=== PATIENT | female | born 1950 | race Caucasian/White ===

== ENCOUNTER 2018-02-20 12:07 | Emergency (ER) | payer MEDICARE, OTHER ==
[~2018-02-20] VITALS: Ht 162.6 cm; Wt 83.9 kg
--- OUTSIDE RECORDS SUMMARY | 2018-02-20 12:08 | XMS REPORT | Clinical Summary ---
Author Author [facility] Organization [facility] Address Unknown Phone Unavailable Care Team Providers Care Msw Name Role Phone Rocky Christianson MD PCP Allergies Comments Active Allergy Reactions Severity Noted Date Adhesive Rash Low 04/15/2015 Levofloxacin Diarrhea, 07/17/2015 Nausea And Vomiting Methylprednisolone Diarrhea, 07/17/2015 Nausea And Vomiting Methylprednisolone Sodium 01/20/2016 Succinate Penicillin G Rash Low 06/04/2015 Penicillins Rash Low 07/17/2015 Medications End Date Status Medication Sig Dispensed Refills Start Date Active cetirizine (ZyrTEC) 10 MG Take 10 mg by 0 tablet mouth. Active aspirin (ECOTRIN) 81 MG Take 81 mg by 0 enteric coated tablet mouth. Active cholecalciferol, vitamin Take 1,000 0 D3, (VITAMIN D3) 1,000 Units by unit capsule mouth. Active omega-3 fatty Take 1 0 acids-vitamin E 1,000 mg capsule by capsule mouth. Active calcium carbonate Take 1 tablet 0 (CALCIUM 600) 600 mg (600 mg 6 (1,500 mg) tablet total) by mouth 2 (two) times a day with meals. Active ranitidine (ZANTAC) 150 TAKE 1 TABLET 60 tablet 8 MG tablet (150 MG 7 TOTAL) BY MOUTH 2 (TWO) TIMES A DAY. Active escitalopram (LEXAPRO) 20 TAKE ONE (1) 30 tablet 10 MG tablet TABLET(S) BY 7 MOUTH ONCE A DAY. Active atorvastatin (LIPITOR) 40 TAKE ONE (1) 90 tablet 1 MG tablet TABLET(S) BY 7 MOUTH DAILY. Active FLUCELVAX QUAD , IMMUNIZATION 0 PF, 60 mcg (15 mcg x GIVEN 7 4)/0.5 mL syringe IM Injection Active estradiol (ESTRACE) 0.01 Insert 0.5 g 42.5 g 2 % (0.1 mg/gram) vaginal into the 7 creamIndications: Vaginal vagina 3 atrophy (three) times a week. Active levothyroxine (SYNTHROID, Take 1 tablet 90 tablet 1 LEVOXYL) 112 mcg tablet (112 mcg 8 total) by mouth every morning. 03/10/2017 Discontinued montelukast (SINGULAIR) Take 10 mg by 0 10 mg tablet mouth nightly. 03/17/2017 Discontinued levothyroxine (SYNTHROID, Take 112 mcg 0 LEVOTHROID) 112 MCG by mouth tablet every morning. 03/10/2017 Discontinued estradiol (ESTRACE) 0.01 Insert 1 g 42.5 g 0 % (0.1 mg/gram) vaginal into the 7 cream vagina 3 (three) times a week. 03/10/2017 Discontinued albuterol (PROAIR Inhale 2 18 g 0 HFA,PROVENTIL puffs every 6 7 HFA,VENTOLIN HFA) 90 (six) hours mcg/actuation inhaler as needed for wheezing or shortness of breath. 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 07/27/2016 Osteoarthritis of spine with radiculopathy, lumbar region 07/27/2016 Spinal stenosis at L4-L5 level 07/27/2016 Postmenopausal HRT (hormone replacement therapy) 07/27/2016 Generalized anxiety disorder 01/20/2016 Psychophysiological insomnia 01/20/2016 BMI 33.0-33.9,adult 01/20/2016 IGT (impaired glucose tolerance) 01/20/2016 Colon polyp 06/17/2015 Low back pain 06/04/2015 Depression 06/04/2015 Hypothyroidism 06/04/2015 Mixed hyperlipidemia 06/04/2015 GERD (gastroesophageal reflux disease) 06/04/2015 Thyroid nodule 06/04/2015 Encounters Care Team Description Date Type Specialty Mario Cooper MD Complete tear of right rotator cuff (Primary Dx) 01/25/2018 Transcribe Physical Therapy Orders Rocky Christianson MD 09/04/2017 Refill Family Medicine Rocky Christianson MD 08/01/2017 Refill Family Medicine Rocky Christianson MD 03/17/2017 Telephone Family Medicine Shirin Mcnair MD Breast lump in female (Primary Dx); Well woman exam; Vaginal atrophy 03/10/2017 Office Visit Obstetrics and Gynecology Rocky Christianson MD 03/01/2017 Telephone Family Medicine after 02/19/2017 Immunizations Name Dates Previously Given Next Due Influenza Trivalent 01/07/2015 Family History Medical History Relation Name Comments Cancer Maternal Aunt Em Lung Cancer Maternal Aunt Dianna Lung Cancer Maternal Aunt Alexa Lymph Nodes Cancer Maternal Leta Breast Grandmother Cancer Mother Delilah Glioblastoma Relation Name Status Comments Maternal Aunt Em Maternal Aunt Dianna Maternal Aunt Alexa Maternal Grandmother Leta Mother Delilah Social History Date Tobacco Use Types Packs/Day Years Used Never Smoker Smokeless Tobacco: Never Used Alcohol Use Drinks/Week oz/Week Comments No Sex Assigned at Date Recorded Not on file Industry Job Start Date Occupation Not on file Not on file Not on file Travel End Travel History Travel Start No recent travel history available. Last Filed Vital Signs Time Taken Vital Sign Reading 03/10/2017 3:11 PM [employer] Blood Pressure 139/61 03/10/2017 3:11 PM [employer] Pulse 83 - Temperature - - Respiratory Rate - - Oxygen Saturation - - Inhaled Oxygen - Concentration 03/10/2017 3:11 PM [employer] Weight 86.2 kg (190 lb) 03/10/2017 3:11 PM [employer]IE[employer] Height 162.6 cm (5' 4") 03/10/2017 3:11 PM [employer]KERCHIE[employer] Body Mass Index 32.61 Plan of Treatment Care Team Description Date Type Specialty Mario Cooper MD [address] [place] [address] [phone] Cordell Aquino, PT 02/21/2018 Office Visit Physical Therapy Mario Cooper MD [address] [place] [address] [phone] Cordell Aquino, PT 02/28/2018 Office Visit Physical Therapy Health Maintenance Due Date Last Done Comments SHINGRIX VACCINE (1 of 2) 2002 ZOSTER VACCINE 2012 BREAST CANCER SCREENING 06/30/2013 07/01/2011 INFLUENZA VACCINE 10/13/2017 03/01/2017, 01/07/2015, 12/13/2014, Additional history exists PNEUMOCOCCAL 2017 POLYSACCHARIDE VACCINE AGE 65 AND OVER PNEUMOCOCCAL-13 2017 CERVICAL CANCER SCREENING 03/10/2020 03/10/2017 COLON CANCER SCREENING 09/02/2022 09/02/2012 Procedures Comments Procedure Name Priority Date/Time Associated Diagnosis GYNECOLOGIC PAP TEST Routine 03/10/2017 Well woman exam (IMAGE-GUIDED), 3:59 PM HANDKERCHIEF CUTTER LIQUID-BASED PREPARATION AND HUMAN PAPILLOMAVIRUS (HPV) HIGH-RISK DNA DETECTION WITH REFLEX TO HPV GENOTYPES 16 AND 18 after 02/19/2017 Results * Gynecologic Pap Test (Image-guided), Liquid-based Preparation and Human Papillomavirus (HPV) High-risk DNA Detection With Reflex to HPV Genotypes 16 and 18 (03/10/2017 3:59 PM HANDKERCHIEF CUTTER) Diagnosis Comment [facility] Comment: NEGATIVE FOR INTRAEPITHELIAL LESION AND MALIGNANCY. THIS SPECIMEN WAS RESCREENED PART OF OUR COMPUTER HARDWARE ENGINEER PROGRAM. Specimen adequacy Comment [facility] Comment: Satisfactory for evaluation.Endocervical and/or squamous metaplastic cells (endocervical component) are present. Clinician provided ICD10 CommentComment: Z01.419 [facility] Performed by: Comment [facility] Comment: Lei Gomez, Tow Motor Driver (ASC) Reviewed at: [facility] [address] [facility] [id number] reviewed by: CommentComment: Akila Muñoz [facility] Moran, Supervisory Tow Motor Driver (ASCP) Comment . [facility] Note: Comment [facility] Comment: The Pap smear is a screening test designed to aid in the detection of premalignant and malignant conditions of the uterine cervix.It is not a diagnostic procedure and should not be used as the sole means of detecting cervical cancer.Both false-positive and false-negative reports do occur. Test methodology Comment [facility] Comment: This liquid based ThinPrep(R) pap test was screened with the use of an image guided system. HPV, high-risk Negative Negative [facility] 02 Comment: This high-risk HPV test detects thirteen high-risk types (16/18/31/33/35/39/45/51/52/56 /58/59/68) without differentiation. Specimen Swab Narrative Performed At Performed at: - [facility] [address] [facility] [address] [place], [id number] Application Development Specialist: Lorrie Fernandez MD, Phone:[phone] Performed at:02 - [facility] [address] [place], [id number] Application Development Specialist: Lorrie Fernandez MD, Phone:[phone] Specimen Comment: Source.............Vagina Specimen Comment: No. of containers..01 ThinPrep Vial Performing Organization Address City/State/Zipcode Phone Number [facility] 02 after 02/19/2017 Insurance Payer Benefit Subscriber ID Type Phone Address Plan / Group [employer] [place] [employer] Commercial [place] MED[place] MEDICARE xxxxxxxxxxx Medicare [place], [place] PART A AND B Advance Directives Patient has advance care planning documents on file. For more information, varinder zarco contact: Acosta Rincon [address] [place] [address]
--- OUTSIDE RECORDS SUMMARY | 2018-02-20 12:09 | XMS REPORT | Encounter Summary ---
Author Organization Unknown Address [address] [place] [address] Phone [phone] Reason for Visit Medical Complaint Instructions 1. Acute cystitis urinalysis, dipstick Bactrim DS 800 mg-160 mg tablet culture, urine 2. Dysuria painful urination (dysuria): care instructions 3. Cough Tessalon Perles 100 mg capsule 4. Posterior rhinorrhea fluticasone 50 mcg/actuation nasal spray,suspension 5. Body mass index 30+ - obesity Discussion Note Take your antibiotics as directed. Do not stop taking them just because you feel better. You need to take the full course of antibiotics. Drink extra water and other fluids for the next day or two. This may help wash out the bacteria that are causing the infection. (If you have kidney, heart, or liver disease and have to limit fluids, talk with your doctor before you increase your fluid intake.) Avoid drinks that are carbonated or have caffeine. They can irritate the bladder. Urinate often. Try to empty your bladder each time. To relieve pain, take a hot bath or lay a heating pad set on low over your lower belly or genital area. Never go to sleep with a heating pad in place. Plan of Care Reminders Provider Appointments None recorded. Lab Urinalysis, Dipstick 01/18/2018 [facility] Culture, Urine 01/18/2018 [facility] Referral None recorded. Procedures None recorded. Surgeries None recorded. Imaging None recorded. Medications Name Start Date atorvastatin 40 mg tablet TAKE ONE (1) TABLET(S) BY MOUTH ONCE A DAY. Bactrim DS 800 mg-160 mg tablet Take 1 tablet every 12 hours by oral route with meals for 5 days. calcium carbonate 600 mg calcium (1,500 mg) tablet Take by oral route. cetirizine 10 mg capsule Take by oral route. cholecalciferol (vit D3) 1,000 unit-vitamin K2 (MK4) 100 mcg tablet Take by oral route. escitalopram 20 mg tablet TAKE ONE (1) TABLET(S) BY MOUTH ONCE A DAY. Estrace 0.01% (0.1 mg/gram) vaginal cream INSERT 0.5 GRAMS INTO THE VAGINA 3 (THREE) TIMES A WEEK. fluticasone 50 mcg/actuation nasal spray,suspension [place] 2 sprays twice a day by intranasal route as needed for 10 days. levothyroxine 112 mcg tablet TAKE ONE (1) TABLET(S) BY MOUTH ONCE A DAY. [place] 3 Tessalon Perles 100 mg capsule Take 2 capsules 3 times a day by oral route as needed for 10 days. Medications Administered None recorded. Vitals Height Weight BMI Blood Pressure 5 ft 4 in 185 lbs 31.8 kg/m2 118/78 mm[Hg] Lab Results None recorded. Allergies Code Code System Name Reaction Severity Status Onset Penicillins Rash Active Problems Name Status Onset Date Source Hypothyroidism Active 10/14/2017 Hyperlipidemia Active 10/14/2017 Body Mass Index 30+ - Obesity Active 10/14/2017 Seasonal Allergy Active 10/14/2017 Procedures Date Name Performed by Arthroscopic Repair of Rotator Cuff Information not available Cholecystectomy Information not available Hysterectomy Information not available Vaccine List Vaccine Type influenza, injectable, quadrivalent 12/13/2016 11/24/2017 influenza, seasonal, injectable 11/13/2013 12/13/2014 Social History Smoking Status Never Smoker Past Encounters 01/18/2018 Acute Cystitis; Dysuria; Cough; Posterior Rhinorrhea; Body Mass Index 30+ - Obesity Akhil Guerrero PA-C: [address] [place] [address], Ph. History of Present Illness [id number]-Kjuhlek Reported By: Patient HPI: Quality: pain, burning. Severity: same. Duration: constant. Onset/Timing: sudden. Context: not sexually active, no known exposure to STD, no prior history of STDs, history of urine cultures/antibiotic treatment, wipes anterior to posterior. Modifying factors OTC medication. Associated Symptoms: no fever/chills, no flank pain, no jaundice, no blood in the urine, no pain during urination, no vaginal discharge, no blisters on genitals, no rash on genitals, no muscle aches, no headache, burning sensation during urination, urgency, urinary frequency Cough Reported By: Patient HPI: Location: chest. Quality: productive cough, congested, hacking cough. Duration: 1 days. Severity: mild. Onset/Timing: sudden. Context: no sick contacts, no foreign travel, non-smoker, allergies. Modifying factors: OTC medication. Associated Symptoms: no sputum production, no shortness of breath, no wheezing, no sweats, no significant weight gain, no significant weight loss, no morning cough, no sore throat, no vomiting, no diarrhea, no rash, no nausea, no fever/chills, no muscle aches, no headache Review of Systems Basic Reported By: Patient Constitutional: Constitutional: no fever Eyes: Eyes: no eye complaints Xrvk-Ulnh-Rkmek-Throat: Ears: no ear complaints. Nose: nose/sinus problems. Mouth/Throat: no sore throat, no bleeding gums, no mouth complaints, no teeth problems Cardiovascular: Cardiovascular: no chest pain, no shortness of breath, no known heart murmur Respiratory: Respiratory: no wheezing, no shortness of breath, cough Gastrointestinal: Gastrointestinal: no abdominal pain, no vomiting / diarrhea Genitourinary: Genitourinary: no discharge, dysuria, urinary urgency Musculoskeletal: Musculoskeletal: no muscle aches, no muscle weakness, no arthralgias/joint pain, no back pain Skin: Skin: no abnormal / changing mole, no jaundice, no rashes Neurologic: Neurologic: no loss of consciousness, no weakness, no numbness, no seizures, no dizziness, no headaches Physical Exam Adult Female Complete Reported By: Patient Constitutional: General Appearance: healthy-appearing, well-nourished, well-developed, overweight. Level of Distress: NAD. Ambulation: ambulating normally Psychiatric: Mental Status: active and alert. Orientation: to time, to place, to person Eyes: Lids and Conjunctivae: non-injected, no discharge, no pallor. Pupils: PERRLA. EOM: EOMI. Sclerae: non-icteric. Vision: acuity grossly intact Lyq-Tghp-Drhlq-Throat: Ears: no lesions on external ear, no outer ear tenderness, EACs clear, TM erythematous, TM perforated. Hearing: no hearing loss. Nose: no lesions on external nose, nares patent, no septal deviation, nasal passages clear, no sinus tenderness, nasal discharge, nasal discharge--purulent, nasal discharge--rhinorrhea, post nasal drip; clear but boggy and swollen turbinates. Lips, Teeth, and Gums: no mouth or lip ulcers, no bleeding gums, normal dentition. Oropharynx: moist mucous membranes, no erythema, no exudates, tonsils not enlarged; cobblestoning Neck: Neck: supple, trachea midline, no masses, FROM. Lymph Nodes: no cervical LAD, no supraclavicular LAD Lungs: Respiratory effort: no dyspnea. Auscultation: breath sounds normal Cardiovascular: Heart Auscultation: RRR, no murmurs Abdomen: Bowel Sounds: normal. Inspection and Palpation: soft, non-distended, no tenderness, no guarding, no rebound tenderness, no masses, no CVA tenderness. Liver: non-tender, no hepatomegaly. Spleen: non-tender, no splenomegaly. Hernia: none palpable
--- OUTSIDE RECORDS SUMMARY | 2018-02-20 12:09 | XMS REPORT | Encounter Summary ---
Author Organization Unknown Address [address] [place] [address] Phone [phone] Reason for Visit Medical Complaint Instructions 1. [...] Appointments None recorded. Lab Urinalysis, Dipstick 01/18/2018 [facility] Culture, Urine 01/18/2018 [facility] Referral None [...] A WEEK. fluticasone 50 mcg/actuation nasal spray,suspension [place] 2 sprays twice a day by intranasal route as needed for 10 days. levothyroxine 112 mcg tablet TAKE ONE (1) TABLET(S) BY MOUTH ONCE A DAY. [place] 3 Tessalon Perles 100 mg capsule Take [...] 30+ - Obesity Akhil Guerrero PA-C: [address] [place] [address], Ph. History of Present Illness [id number] Reported By: Patient HPI: Quality: pain, burning. [...] no fever Eyes: Eyes: no eye complaints Anug-Fybq-Fldpp-Throat: Ears: no ear complaints. Nose: nose/sinus problems. [...] EOMI. Sclerae: non-icteric. Vision: acuity grossly intact Yiy-Yjao-Nzyqn-Throat: Ears: no lesions on external ear, no [...]
--- OUTSIDE RECORDS SUMMARY | 2018-02-20 12:09 | XMS REPORT | Encounter Summary ---
Author Organization Unknown Address [address] [place] [address] Phone [phone] Reason for Visit Medical Complaint Instructions 1. Seasonal allergy seasonal allergies: care instructions prednisone 20 mg tablet 2. Pain in throat sore throat: care instructions Lidocaine Viscous 2 % mucosal solution rapid strep group A, throat 3. Body mass index 30+ - obesity body mass index: care instructions Discussion Note Pt is in NAD; Verbalizes understanding of all instructions with no questions at this time. Plan of Care Patient Instructions Gargle and spit viscous lidocaine as needed for sore throat as directed. Take fluticasone over the counter as needed for congestion. [place] one spray in each nostril twice a day. Take a warm, steamy shower, blow your nose thereafter, and spray in each nostril. Tilt your head up for about 10 seconds and breath through your mouth. Do not sniff or snort the medication in or else the medication will go to your throat and not be absorbed appropriately. Take over the counter Xyzal or continue with cetirzine as directed for allergy like symptoms like runny nose, sneezing and watery eyes. Take steroid as directed and with food to avoid heartburn. Take medications as prescribed and follow up with a PCP within 2-3 if symptoms worsen as discussed. Recommend follow a low sodium/fat/carb diet and exercise 30-45 mins/d 3-4 days a week once symptoms resolve. Reminders Provider Appointments None recorded. Lab Rapid Strep Group a, Throat 10/14/2017 [facility] Referral None recorded. Procedures None recorded. Surgeries None recorded. Imaging None recorded. Medications Name Start Date aspirin 81 mg chewable tablet Chew 1 tablet every day by oral route. atorvastatin 40 mg tablet TAKE ONE (1) TABLET(S) BY MOUTH ONCE A DAY. calcium carbonate 600 mg calcium (1,500 mg) [...] THE VAGINA 3 (THREE) TIMES A WEEK. levothyroxine 112 mcg tablet TAKE ONE (1) TABLET(S) BY MOUTH ONCE A DAY. Lidocaine Viscous 2 % mucosal solution Take 15 mL every 3 hours by oral route as needed. Mucinex [place] 3 prednisone 20 mg tablet Take 1 tablet twice a day by oral route as directed for 4 days. ranitidine 150 mg tablet TAKE ONE (1) TABLET(S) BY MOUTH TWICE A DAY. 10/14/2017 Medications Administered None recorded. Vitals Height Weight BMI Blood Pressure 5 ft 4 in 186 lbs 31.9 kg/m2 116/68 mm[Hg] Lab Results Date Name Specimen Result Interpretation Description Value Range Status Address Rapid Strep Group a, Throat Result negative [facility]: [address] [place] [address] Swab Location Left and Right tonsillar pillars [facility]: [address] [place] [address] Allergies Code Code System Name Reaction Severity Status Onset Penicillins Rash Active Problems Name Status Onset Date Source Hypothyroidism Active 10/14/2017 Hyperlipidemia Active 10/14/2017 Body Mass Index 30+ - Obesity Active 10/14/2017 Pain in Throat Active 10/14/2017 Seasonal Allergy Active 10/14/2017 Candidiasis of Mouth Active Encounter Acute Tonsillitis Active Encounter Urinary Tract Infectious Disease Active Encounter Acute Urinary Tract Infection Active Encounter Procedures Date Name Performed by Cholecystectomy Information not available Hysterectomy Information not available Vaccine List Vaccine Type influenza, injectable, quadrivalent 12/13/2016 influenza, seasonal, injectable 11/13/2013 12/13/2014 Social History Smoking Status Never Smoker Past Encounters 10/14/2017 Seasonal Allergy; Pain in Throat; Body Mass Index 30+ - Obesity Phuong Reyez, SARAH-C: [address] [place] [address], Ph. History of Present Illness Fppzj-Aaxglconmu-Dvrrcju Reported By: Patient HPI: Location: head/sinuses, throat. Quality: sore throat. Duration: 1days. Severity: moderate. Onset/Timing: gradual. Context: no sick contacts, no foreign travel, non-smoker, allergies. Modifying factors: ; cetirizine with minimal relief. Associated Symptoms: no sputum production, no shortness of breath, no wheezing, no change in number of pillows needed to sleep at night, no sweats, no significant weight gain, no significant weight loss, no morning cough, no vomiting, no diarrhea, no rash, no nausea, no fever, no muscle aches, no headache, sore throat; post nasal drip Review of Systems Basic Reported By: Patient Constitutional: Constitutional: no fever Eyes: Eyes: no eye complaints Pqab-Eydm-Lente-Throat: Ears: no ear complaints. Nose: nose/sinus problems. Mouth/Throat: no bleeding gums, no mouth complaints, no teeth problems, sore throat Cardiovascular: Cardiovascular: no chest pain, no shortness of breath, no known heart murmur Respiratory: Respiratory: no cough, no wheezing, no shortness of breath Gastrointestinal: Gastrointestinal: no abdominal pain, no vomiting / diarrhea Genitourinary: Genitourinary: no urinary complaints, no discharge Musculoskeletal: Musculoskeletal: no muscle aches, no muscle weakness, no arthralgias/joint pain, no back pain Skin: Skin: no abnormal / changing mole, no jaundice, no rashes Neurologic: Neurologic: no loss of consciousness, no weakness, no numbness, no seizures, no dizziness, no headaches Physical Exam Adult Basic, Adult Female Complete Reported By: Patient Constitutional: General Appearance: obese. Level of Distress: NAD. Ambulation: ambulating normally Psychiatric: Mental Status: active and alert. Orientation: to time, to place, to person Eyes: Lids and Conjunctivae: non-injected, no discharge, no pallor. Corneas: grossly intact. Lens: clear Lzx-Avzj-Eehmq-Throat: Ears: no lesions on external ear, no outer ear tenderness, EACs clear, TMs clear. Hearing: no hearing loss. Nose: no lesions on external nose, nares patent, no septal deviation, nasal passages clear, no sinus tenderness, nasal discharge--rhinorrhea, post nasal drip; B/L NTs pale and edematous. Lips, Teeth, and Gums: no mouth or lip ulcers, no bleeding gums, normal dentition. Oropharynx: moist mucous membranes, no erythema, no exudates, tonsils not enlarged Neck: Neck: supple. Lymph Nodes: no cervical LAD Lungs: Respiratory effort: no dyspnea, no tachypnea, no use of accessory muscles, no intercostal retractions. Auscultation: breath sounds normal Cardiovascular: Heart Auscultation: RRR, no murmurs Neurologic: Gait and Station: normal gait, normal station. Cranial Nerves: grossly intact
--- OUTSIDE RECORDS SUMMARY | 2018-02-20 12:09 | XMS REPORT | Summary of Care ---
Author Author [facility] Organization [facility] Address Unknown Phone Unavailable Encounter TERRY Rivas(OTIS) [id number] Date(s): 10/08/14 - 10/08/14 [facility] [address] [place] [address]- [phone] Discharge Disposition: Home Attending Physician: Nayan Cuenca MD Referring Physician: Nayan Cuenca MD Vital Signs No data available for this section Problem List No data available for this section Allergies, Adverse Reactions, Alerts No data available for this section Medications No data available for this section Results CHEM PANEL Most recent to 1 oldest [Reference Range]: eGFR 69 mL/min/1.73m2 1 *NA* (10/08/14 2:03 PM) POC Creatinine 0.9 mg/dL [0.5-1.4 mg/dL] (10/08/14 2:03 PM) 1Result Comment: The eGFR is calculated using the CKD-EPI formula. In most young, healthy individuals the eGFR will be >90 mL/min/1.73m2. The eGFR declines with age. An eGFR of 60-89 may be normal in some populations, particularly the elderly, for whom the CKD-EPI formula has not been extensively validated. Use of the eGFR is not recommended in the following populations: Individuals with unstable creatinine concentrations, including patients and those with serious co-morbid conditions. Patients with extremes in muscle mass or diet. The data above are obtained from the National Kidney Disease Education Program ( NKDEP) which additionally recommends that when the eGFR is used in patients with extremes of body mass index for purposes of drug dosing, the eGFR should be mul tiplied by the estimated BMI. Immunizations No data available for this section Procedures No data available for this section Social History No data available for this section Assessment and Plan No data available for this section
--- OUTSIDE RECORDS SUMMARY | 2018-02-20 12:09 | XMS REPORT | Summary of Care ---
Author Author ROVERTO Fernandez, LILA Organization Unknown Address Unknown Phone Unavailable Care Team Providers Care Cds Sales Advisor Name Role Phone Shereen Smith M.A. Unavailable Unavailable LILA LAYNE D.O. Unavailable Unavailable Unavailable Unavailable Functional Status Name Dates Details Functional status health issues are not documented Status: Name Dates Details Cognitive status health issues are not documented Status: Problems Name Dates Details Extremity pain (729.5, M79.609) Status: Active Hypercholesterolemia (272.0, E78.00) Status: Active Prediabetes (790.29, R73.03) Status: Active Hypothyroidism, unspecified type (244.9, E03.9) Status: Active Depression (311, F32.9) Status: Active Occlusion and stenosis of carotid artery (433.10, I65.29) Status: Active GERD (gastroesophageal reflux disease) (530.81, K21.9) Status: Active Medications Name Dates Details Omeprazole CPDR Active Atorvastatin Calcium 40 MG Oral Tablet TAKE 1 TABLET DAILY. * Quantity: 1 Refills: 1 YEH D.O., LILA Active 90 Tablet Bottle Fish Oil CAPS * Refills: 0 Active Vitamin D CAPS * Refills: 0 Active Calcium TABS * Refills: 0 Active Zyrtec TABS * Refills: 0 Active RaNITidine HCl - 150 MG Oral Capsule TAKE 1 CAPSULE TWICE DAILY * Quantity: 180 Refills: 1 YEH D.O., LILA * Start : 12-Apr-2017 Active Levothyroxine Sodium 112 MCG Oral Tablet TAKE ONE TABLET BY MOUTH DAILY. * Quantity: 90 Refills: 1 YEH D.O., JANET-TAMI * Start : 12-Apr-2017 Active Escitalopram Oxalate 20 MG Oral Tablet TAKE 1 TABLET DAILY. * Quantity: 90 Refills: 2 YEH D.O., JANET-TAMI * Start : 12-Apr-2017 Active Cetirizine HCl - 10 MG Oral Tablet TAKE 1 TABLET AT BEDTIME. * Quantity: 30 Refills: 5 * Start : 12-Apr-2017 Active Aspirin 81 MG Oral Tablet Chewable TAKE 1 TABLET DAILY * Refills: 1 * Start : 12-Apr-2017 Active Allergies and Adverse Reactions Name Dates Details Medrol TABS (Allergy) Status: Active Penicillins (Allergy) Status: Active Past Medical History Name Dates Details History of esophageal reflux (V12.79, Z87.19) Status: Resolved Procedures Procedure Dates Details [QH] LIPID PANEL WITH REFLEX TO DIRECT LDL Date: 12-Apr-2017 History of Hysterectomy Completed History of Hand Surgery Completed History of back surgery Completed Immunization Name Dates Details Influenza on: 01-Mar-2017 Family History Name Dates Details Family history of glioblastoma (V16.8, Z80.8) Status: Active Name Dates Details Family history of cerebrovascular accident (V17.1, Z82.3) Status: Active Social History Name Dates Details - Status: Name Dates Details Never smoker Vital Signs Date Test Result Details 04-Nac-[id number]:48 BP Systolic 127 mm[Hg] Status: Comments: Location: LUE; Position: Sitting BP Diastolic 64 mm[Hg] Status: Comments: Location: LUE; Position: Sitting Height 64.75 in Status: Weight 191 lb Status: Body Mass Index Calculated 32.03 kg/m2 Status: Body Surface Area Calculated 1.93 m2 Status: Temperature 98.8 f Status: Comments: Method: Temporal Respiration Rate 16 /min Status: Heart Rate 69 /min Status: Results Date Description Value Details 19-Apr-20177:46 [QLH] CMP W/EGFR Glucose, Serum 103 mg/dL (Above high threshold) Range: 65-99 BUN 13 mg/dL Range: 8-27 Creatine, Serum 0.83 mg/dL Range: 0.57-1.00 eGFR If NonAfricn Am 75 mL/min/1.7 Range: >59 eGFR If Africn Am 86 mL/min/1.7 Range: >59 BUN/Creatine Ratio 16 Range: 12-28 Sodium, Serum 146 mmol/L (Above high threshold) Range: 134-144 Potassium, Serum 4.7 mmol/L Range: 3.5-5.2 Chloride, Serum 101 mmol/L Range: 96-106 Carbon Dioxide, Total 26 mmol/L Range: 18-29 Calcium, Serum 9.3 mg/dL Range: 8.7-10.3 Protein, Total, Serum 6.2 g/dL Range: 6.0-8.5 Albumin, Serum 4.2 g/dL Range: 3.6-4.8 Globulin, Total 2.0 g/dL Range: 1.5-4.5 A/G Ratio 2.1 Range: 1.2-2.2 Bilirubin, Total 0.7 mg/dL Range: 0.0-1.2 Alkaline Phosphatase, S 113 {IU/L} Range: 39-117 AST (SGOT) 23 {IU/L} Range: 0-40 ALT (SGPT) 22 {IU/L} Range: 0-32 :46 [QLH] CBC (INCLUDES DIFF/PLT) WBC 8.1 {x10E3/uL} Range: 3.4-10.8 RBC 5.08 {x10E6/uL} Range: 3.77-5.28 Hemoglobin 15.0 g/dL Range: 11.1-15.9 Hematocrit 43.1 % Range: 34.0-46.6 MCV 85 fL Range: 79-97 MCH 29.5 pg Range: 26.6-33.0 MCHC 34.8 g/dL Range: 31.5-35.7 RDW 14.1 % Range: 12.3-15.4 Platelets 226 {x10E3/uL} Range: 150-379 Neutrophils 51 % Range: Not Estab. Lymphs 38 % Range: Not Estab. Monocytes 7 % Range: Not Estab. Eos 3 % Range: Not Estab. Basos 1 % Range: Not Estab. Immature Cells Neutrophils (Absolute) 4.2 {x10E3/uL} Range: 1.4-7.0 Lymphs (Absolute) 3.1 {x10E3/uL} Range: 0.7-3.1 Monocytes(Absolute) 0.6 {x10E3/uL} Range: 0.1-0.9 Eos (Absolute) 0.2 {x10E3/uL} Range: 0.0-0.4 Baso (Absolute) 0.1 {x10E3/uL} Range: 0.0-0.2 Immature Granulocytes 0 % Range: Not Estab. Immature Grans (Abs) 0.0 {x10E3/uL} Range: 0.0-0.1 NRBC Hematology Comments: :46 [L] LP Cholesterol, Total 146 mg/dL Range: 100-199 Triglycerides 104 mg/dL Range: 0-149 HDL Cholesterol 38 mg/dL (Below low threshold) Range: >39 VLDL Cholesterol Yuniel 21 mg/dL Range: 5-40 LDL Cholesterol Calc 87 mg/dL Range: 0-99 Comment: :46 [QLH] MICROALBUMIN, RANDOM URINE (W/CREATININE) Creatinine, Urine 118.1 mg/dL Range: Not Estab. Microalbumin, Urine <3.0 ug/mL Range: Not Estab. Microalb/Creat Ratio <2.5 {mg/g_creat} Range: 0.0-30.0 :46 [QLH] HEMOGLOBIN A1c Hemoglobin A1c 5.8 % (Above high threshold) Range: 4.8-5.6 Comments: . Pre-diabetes: 5.7 - 6.4 Diabetes: >6.4 Glycemic control for adults with diabetes: <7.0 :46 [QL] TSH, 3RD GENERATION W/REFLEX TO FT4 TSH 1.210 {uIU/mL} Range: 0.450-4.500 Plan of Care Name Dates Details Planned Observations Planned Goals not documented Instructions Name Dates Details Instructions not documented Encounters Appointment; VASCULAR, SE Encounter Diagnosis: Problem not documented On: 08-Feb-2017 9:00 Appointment; YUAN CRUZ M.D. Encounter Diagnosis: Problem not documented On: 24-Feb-2017 9:15 Appointment; LILA LAYNE D.O. Encounter Diagnosis: Problem not documented On: 12-Apr-2017 13:45
--- OUTSIDE RECORDS SUMMARY | 2018-02-20 12:09 | XMS REPORT | Continuity of Care Document ---
Author Author [facility] Address Unknown Phone Unavailable Problems Problem Status Onset Date Classification Date Reported Comments Source Posterior rhinorrhea 01/18/2018 Diagnosis 01/18/2018 [facility] Cough 01/18/2018 Diagnosis 01/18/2018 [facility] Dysuria 01/18/2018 Diagnosis 01/18/2018 [facility] Acute cystitis 01/18/2018 Diagnosis 01/18/2018 [facility] Body mass index 30+ - obesity 01/18/2018 Diagnosis 01/18/2018 [facility] Pain in throat 10/14/2017 Diagnosis 10/14/2017 [facility] Seasonal allergy 10/14/2017 Diagnosis 10/14/2017 [facility] Hypothyroidism 10/14/2017 Problem 01/18/2018 [facility] Hyperlipidemia 10/14/2017 Problem 01/18/2018 [facility] Body Mass Index 30+ - Obesity 10/14/2017 Problem 01/18/2018 [facility] Seasonal Allergy 10/14/2017 Problem 01/18/2018 [facility] Pain in Throat 10/14/2017 Problem 10/14/2017 [facility] Proteinuria 08/22/2017 Diagnosis 08/22/2017 [facility] Acute urinary tract infection 08/22/2017 Diagnosis 08/22/2017 [facility] 433.10 ARTERIOSCLEROSIS OF CAROTID ARTER Active 10/03/2014 [place] NECK PAIN Active 02/17/2011 [facility] Candidiasis of Mouth Problem 10/14/2017 [facility] Acute Tonsillitis Problem 10/14/2017 [facility] Urinary Tract Infectious Disease Problem 10/14/2017 [facility] Acute Urinary Tract Infection Problem 10/14/2017 [facility] Medications Medication Details Route Status Patient Instructions Ordering Provider Order Date Source Ranitidine 150 MG Oral Tablet ranitidine 150 mg tablet TAKE ONE (1) TABLET(S) BY MOUTH TWICE A DAY. Active 10/14/2017 [facility] atorvastatin 40 MG Oral Tablet atorvastatin 40 mg tablet TAKE ONE (1) TABLET(S) BY MOUTH ONCE A DAY. Active [facility] Sulfamethoxazole 800 MG / Trimethoprim 160 MG Oral Tablet [Bactrim] Bactrim DS 800 mg-160 mg tablet Take 1 tablet every 12 hours by oral route with meals for 5 days. Active [facility] Calcium Carbonate 1500 MG Oral Tablet calcium carbonate 600 mg calcium (1,500 mg) tablet Take by oral route. Active [facility] cetirizine hydrochloride 10 MG Oral Capsule cetirizine 10 mg capsule Take by oral route. Active [facility] cholecalciferol (vit D3) 1,000 unit-vitamin K2 (MK4) 100 mcg tablet cholecalciferol (vit D3) 1,000 unit-vitamin K2 (MK4) 100 mcg tablet Take by oral route. Active [facility] Escitalopram 20 MG Oral Tablet escitalopram 20 mg tablet TAKE ONE (1) TABLET(S) BY MOUTH ONCE A DAY. Active [facility] Estradiol 0.1 MG/ML Vaginal Cream [Estrace] Estrace 0.01% (0.1 mg/gram) vaginal cream INSERT 0.5 GRAMS INTO THE VAGINA 3 (THREE) TIMES A WEEK. Active [facility] Fluticasone propionate 0.05 MG/ACTUAT Metered Dose Nasal [place] fluticasone 50 mcg/actuation nasal spray,suspension [place] 2 sprays twice a day by intranasal route as needed for 10 days. Active [facility] Levothyroxine Sodium 0.112 MG Oral Tablet levothyroxine 112 mcg tablet TAKE ONE (1) TABLET(S) BY MOUTH ONCE A DAY. Active [facility] Finger 3 Finger 3 Active [facility] benzonatate 100 MG Oral Capsule [Tessalon Perles] Tessalon Perles 100 mg capsule Take 2 capsules 3 times a day by oral route as needed for 10 days. Active [facility] Aspirin 81 MG Chewable Tablet aspirin 81 mg chewable tablet Chew 1 tablet every day by oral route. Active [facility] Lidocaine Hydrochloride 20 MG/ML Mucous Membrane Topical Solution Lidocaine Viscous 2 % mucosal solution Take 15 mL every 3 hours by oral route as needed. Active [facility] Mucinex Mucinex Active [facility] Prednisone 20 MG Oral Tablet prednisone 20 mg tablet Take 1 tablet twice a day by oral route as directed for 4 days. Active [facility] 0.5 ML influenza A virus A/ (H1N1) antigen 0.03 MG/ML / influenza A virus A/ (H3N2) antigen 0.03 MG/ML / influenza B virus B/[facility] antigen 0.03 MG/ML / influenza B virus B/ antigen 0.03 MG/ML Prefilled Syringe [Flucelvax Quadrivalent [id number]] Flucelvax Quad (PF) 60 mcg (15 mcg x 4)/0.5 mL IM syringe IMMUNIZATION GIVEN Active [facility] influenza A virus A/[facility] (H1N1) antigen 0.03 MG/ML / influenza A virus A/ (H3N2) antigen 0.03 MG/ML / influenza B virus B/[place] antigen 0.03 MG/ML Injectable Suspension [Fluvirin ] Fluvirin 0997-4880 45 mcg (15 mcg x 3)/0.5 mL intramuscular suspension ADM 0.5ML IM UTD Active [facility] levocetirizine dihydrochloride 5 MG Oral Tablet levocetirizine 5 mg tablet TAKE ONE (1) TABLET(S) BY MOUTH ONCE A DAY IN THE EVENING. Active [facility] Ranitidine 150 MG Oral Tablet ranitidine 150 mg tablet TAKE ONE (1) TABLET(S) BY MOUTH TWICE A DAY. Active [facility] Triamcinolone Acetonide 0.001 MG/MG Oral Paste triamcinolone acetonide 0.1 % dental paste Active [facility] Allergies, Adverse Reactions, Alerts Substance Category Reaction Severity Reaction type Status Date Reported Comments Source Penicillins Rash Allergy to substance 09/03/2010 [facility] Immunizations Immunization Date Given Site Status Last Updated Comments Source influenza, injectable, quadrivalent 11/24/2017 completed [facility] influenza, injectable, quadrivalent 12/13/2016 completed [facility] influenza, seasonal, injectable 12/13/2014 completed [facility] influenza, seasonal, injectable 11/13/2013 completed [facility] Results Order Name Results Value Reference Range Date Interpretation Comments Source RESULT negative 10/14/2017 [facility] SWAB LOCATION Left and Right tonsillar pillars 10/14/2017 [facility] Urinalysis macro (dipstick) panel - Urine COLOR : Iris 08/22/2017 [facility] Urinalysis macro (dipstick) panel - Urine CLARITY : Clear 08/22/2017 [facility] Urinalysis macro (dipstick) panel - Urine LEUKOCYTES : Small 08/22/2017 [facility] Urinalysis macro (dipstick) panel - Urine NITRITES : Positive 08/22/2017 [facility] Urinalysis macro (dipstick) panel - Urine UROBILINOGEN : Normal 08/22/2017 [facility] Urinalysis macro (dipstick) panel - Urine PROTEIN : 300 08/22/2017 [facility] Urinalysis macro (dipstick) panel - Urine pH : 5.0 08/22/2017 [facility] Urinalysis macro (dipstick) panel - Urine BLOOD : Small 08/22/2017 [facility] Urinalysis macro (dipstick) panel - Urine SPECIFIC GRAVITY : 1.000 08/22/2017 [facility] Urinalysis macro (dipstick) panel - Urine KETONES : Negative 08/22/2017 [facility] Urinalysis macro (dipstick) panel - Urine BILIRUBIN : Negative 08/22/2017 [facility] Urinalysis macro (dipstick) panel - Urine GLUCOSE Negative [facility]22[facility] Creatinine 0.9 mg/dL 0.5 - 1.4 10/08/2014 [facility] CHEM PANEL eGFR 69 mL/min/1.73m2 10/08/2014 Result Comment: The eGFR is calculated using the [...] from the National Kidney Disease Education Program (NKDEP) which additionally recommends that when the eGFR is used in patients with extremes of body mass index for purposes of drug dosing, the eGFR should be multiplied by the estimated BMI. [facility] Neck CTA Neck CTA EXAM: CT ANGIOGRAM OF THE NECK WITH CONTRAST INDICATION: Limb pain. Hemodynamically significant stenosis noted on carotid ultrasound. Episode of aphasia. DATE: Oct 08, 2014 02:17:39 PM TECHNIQUE: Contiguous thin section images of the neck and lower brain were obtained utilizing a multidetector scanner after administration of contrast. Reformatted maximal intensity projection (MIP) sagittal and coronal images are provided. 3D reconstructions are also provided. COMPARISON: None FINDINGS: Aortic arch: The great vessels originate from the aortic arch in the standard configuration. No origin stenosis is identified. The vertebral arteries are patent bilaterally. Carotid arteries: The cervical common carotid arteries and cervical internal carotid arteries have a normal course, caliber, and contour. There is mild to moderate calcification of the left carotid bulb and proximal internal carotid artery with approximately 30-40% stenosis of the proximal internal carotid artery. There is minimal calcification of the right carotid bulb. No stenosis of the right internal carotid arteries seen. Vertebral arteries: Right vertebral artery is dominant.. They have a normal course, caliber and contour. Bilateral internal jugular veins are patent. Nonvascular findings: No fracture or malalignment is seen.. Bilateral maxillary sinus mucosal thickening is seen. Imaged portions of the mastoid air cells and ear canals are clear. Multilevel facet arthropathy is seen. No cervical lymphadenopathy is present. The thyroid gland is small in size. There is a 2 x 1.7 cm nodule in the superior mediastinum, with enhancement similar to the thyroid gland. The parotid and submandibular glands are within normal limits. Effacement of the left piriform sinus is seen without enhancing mass. Pharyngeal soft tissues are otherwise within normal limits. The trachea is patent. Lung apices are clear without pneumothorax. IMPRESSION: 1. Mild to moderate calcifications of the left carotid bulb and proximal internal carotid artery without hemodynamically significant stenosis. 2. No stenosis of the right internal carotid artery. 3. 2 cm nodule in the superior mediastinum with characteristics similar to the thyroid gland. This may represent an ectopic thyroid gland. Fine-needle aspiration or technetium 99 pertechnetate thyroid scan can be done for further evaluation. All quantitative and qualitative assessments of the carotid bifurcation and proximal internal carotid artery stenosis are made at referencing the distal internal carotid artery. SL: 14 10/08/2014 - - Read by: Jerson Montano MD Dictated Date/time: 10/08/14 16:20 Electronically Signed by: Jerson Montano MD 10/08/14 16:41 FINAL REPORT [facility] Vital Signs Vital Sign Value Date Comments Source Diastolic (mm Hg) 78 01/18/2018 [facility] Height 64 01/18/2018 [facility] Systolic (mm Hg) 118 01/18/2018 [facility] Weight 185 01/18/2018 [facility] Diastolic (mm Hg) 68 10/14/2017 [facility] Height 64 10/14/2017 [facility] Systolic (mm Hg) 116 10/14/2017 [facility] Weight 186 10/14/2017 [facility] Diastolic (mm Hg) 80 08/22/2017 [facility] Height 64 08/22/2017 [facility] Systolic (mm Hg) 126 08/22/2017 [facility] Weight 185 08/22/2017 [facility] Encounters Location Location Details Encounter Type Encounter Number Reason For Visit Attending Provider ADM Date DC Date Status Source OD [id number] NECK PAIN FABIO MORENO 02/18/2011 Active [facility] Outpatient [id number] Nayan Cuenca 10/08/2014 10/09/2014 [facility] [place] - [facility] - [id number] Dominic Lester NP-C: [address] [place] [address], Ph. [id number] Dominic Lester 08/22/2017 [facility] [place] [facility] - [id number] ALICIA WaggonerP-C: [address] [place] [address], Ph. [id number] Phuong Reyez 10/14/2017 [facility] [place] [facility] - [id number] BALDEV YoungbloodC: [address] [place] [address], Ph. [id number] Akhil Guerrero 01/18/2018 [facility] [place] [facility] - [id number] HutchinsC: [address] [place] [address], Ph. [id number] Akhil Guerrero 01/18/2018 [facility] Procedures Procedure Code Date Perfomer Comments Source Arthroscopic Repair of Rotator Cuff [facility] Cholecystectomy [facility] Hysterectomy [facility]
--- OUTSIDE RECORDS SUMMARY | 2018-02-20 12:09 | XMS REPORT ---
Author Author [facility] Address Unknown Phone Unavailable Care Team Providers Care Front Desk Agent Name Role Phone Unavailable Unavailable Payers Payer Name Policy Type Policy Number Effective Date Expiration Date Problems This patient has no known problems. Allergies, Adverse Reactions, Alerts Allergy Name Allergy Type Status Severity Reaction(s) Onset Date Inactive Date Treating Clinician Comments Penicillins DA Active [facility] 2011-06-20 00:00:00 Medications This patient has no known medications.
--- OUTSIDE RECORDS SUMMARY | 2018-02-20 12:09 | XMS REPORT | Encounter Summary ---
Author Organization Unknown Address [address] [place] [id number] Phone [phone] Reason for Visit Medical Complaint Instructions 1. Acute urinary tract infection urinalysis, dipstick Bactrim DS 800 mg-160 mg tablet culture, urine 2. Proteinuria proteinuria: care instructions Discussion Note TEST Kasandra Plan of Care Patient Instructions Pt will take meds as prescribed with 8oz glass of water. Please seek care (PCP, Urgent Care, ER) or return to [facility] if symptoms get worse or do not resolve in 1 week. Reminders Provider Appointments None recorded. Lab Urinalysis, Dipstick 08/22/2017 [facility] Culture, Urine 08/22/2017 [facility] Referral None recorded. Procedures None recorded. Surgeries None recorded. Imaging None recorded. Medications Name Start Date atorvastatin 40 mg tablet TAKE ONE (1) TABLET(S) BY MOUTH DAILY. Bactrim DS 800 mg-160 mg tablet Take 1 tablet every 12 hours by oral route with meals for 5 days. cholecalciferol (vit D3) 1,000 unit-vitamin K2 (MK4) 100 mcg tablet Take by oral route. escitalopram 20 mg tablet TAKE ONE (1) TABLET(S) BY MOUTH ONCE A DAY. Estrace 0.01% (0.1 mg/gram) vaginal cream INSERT 0.5 GRAMS INTO THE VAGINA 3 (THREE) TIMES A WEEK. Flucelvax Quad 6359-5458 (PF) 60 mcg (15 mcg x 4)/0.5 mL IM syringe IMMUNIZATION GIVEN Fluvirin [id number] 45 mcg (15 mcg x 3)/0.5 mL intramuscular suspension ADM 0.5ML IM UTD levocetirizine 5 mg tablet TAKE ONE (1) TABLET(S) BY MOUTH ONCE A DAY IN THE EVENING. levothyroxine 112 mcg tablet TAKE ONE (1) TABLET(S) BY MOUTH EVERY MORNING. ranitidine 150 mg tablet TAKE ONE (1) TABLET(S) BY MOUTH TWICE A DAY. triamcinolone acetonide 0.1 % dental paste Medications Administered None recorded. Vitals Height Weight BMI Blood Pressure 5 ft 4 in 185 lbs 31.8 kg/m2 126/80 mm[Hg] Lab Results Date Name Specimen Result Interpretation Description Value Range Status Address 08/22/2017 Urinalysis, Dipstick Color : Iris [facility]: [address] [place] [address] Clarity : Clear [facility]: [address] [place] [address] Leukocytes : Small [facility]: [address] [place] [address] Nitrites : Positive [facility]: [address] [place] [address] Urobilinogen : Normal [facility]: [address] [place] [address] Protein : 300 [facility]: [address] [place] [address] Ph : 5.0 [facility]: [address] [place] [address] Blood : Small [facility]: [address] [place] [address] Specific Bertha : 1.000 [facility]: [address] [place] [address] Ketones : Negative [facility]: [address] [place] [address] Bilirubin : Negative [facility]: [address] [place] [address] Glucose Negative [facility]: [address] [place] [address] Allergies Code Code System Name Reaction Severity Status Onset Penicillins Rash Active Problems Name Status Onset Date Source Candidiasis of Mouth Active Encounter Acute Tonsillitis Active Encounter Urinary Tract Infectious Disease Active Encounter Acute Urinary Tract Infection Active Encounter Procedures Date Name Performed by Cholecystectomy Information not available Hysterectomy Information not available Vaccine List Vaccine Type influenza, injectable, quadrivalent 12/13/2016 influenza, seasonal, injectable 11/13/2013 12/13/2014 Social History Smoking Status Never Smoker Past Encounters 08/22/2017 Acute Urinary Tract Infection; Proteinuria Dominic Lester, [employer] [facility]: [address] [place] [address], Ph. History of Present Illness [id number] Reported By: Patient HPI: Location: no radiation. Quality: pressure. Severity: mild. Duration: started 1. Context: not sexually active, no known exposure to STD, no prior history of STDs. Associated Symptoms: no fever/chills, no flank pain, no jaundice, no blood in the urine, no vaginal discharge, no blisters on genitals, no rash on genitals, no muscle aches, no headache, pain during urination, burning sensation during urination, urgency, urinary frequency Review of Systems:ROS as noted in the HPI Review of Systems Basic Reported By: Patient Physical Exam Adult Basic, Adult Female Complete Reported By: Patient Constitutional: General Appearance: healthy-appearing, well-nourished, well-developed. Level of Distress: NAD. Ambulation: ambulating normally Psychiatric: Mental Status: active and alert. Orientation: to time, to place, to person Neurologic: Gait and Station: normal gait, normal station Back: Thoracolumbar Appearance: normal curvature; denies flank pain Abdomen: Inspection and Palpation: suprapubic tenderness Female : External genitalia: normal, no lesions, no rash; denies all. Vagina: moist mucosa, no discharge; denies all
[2018-02-20] MEDS ORDERED: SODIUM CHLORIDE 0.9% 1000ML 1,000 ML IV STA (12:24)
[2018-02-20] MEDS ORDERED: CEFTRIAXONE SOD 1 GM VIAL IV ONE (12:30)
[2018-02-20] MEDS ORDERED: ONDANSETRON HCL INJ 2 MG/ML VIAL IV ONE (13:00)
--- NOTE | 2018-02-20 14:08 | Diagnostic Imaging Report ---
EXAMINATION: CT of the abdomen and pelvis with contrast. TECHNIQUE: Helical CT images of the abdomen and pelvis were performed from the lung bases to the lesser trochanters after the intravenous administration of 100 cc of Isovue 300 and the oral administration of none. Coronal and sagittal reformatted images were obtained.Dose modulation, iterative reconstruction, and/or weight based adjustment of the mA/kV was utilized to reduce the radiation dose to as low as reasonably achievable. COMPARISON: None. CLINICAL HISTORY:Flank pain DISCUSSION: ABDOMEN/PELVIS: LOWER THORAX:Unremarkable. HEPATOBILIARY: No focal hepatic lesions. No intra-or extrahepatic biliary ductal dilation. Cholecystectomy. SPLEEN: No splenomegaly. PANCREAS: No focal masses or ductal dilatation. ADRENALS: No adrenal nodules. KIDNEYS/URETERS: No hydronephrosis, stones, or solid mass lesions. PELVIC ORGANS/BLADDER: The bladder is normal. PERITONEUM/RETROPERITONEUM: No free air or fluid. LYMPH NODES: No intra-abdominal, retroperitoneal, pelvic or inguinal lymphadenopathy. VESSELS: Mild vascular calcifications. GI TRACT: No distention or wall thickening. BONES AND SOFT TISSUE: No bony destructive lesions. No soft tissue abnormalities. IMPRESSION: No acute CT finding. Signed by: Dr. Kj Porras M.D. on 02/20/2018 2:04 PM
== END 2018-02-20 14:32 | disposition home or self-care (01) ==
LOC: FSED 12:07
DX: R30.0 Dysuria (principal); R10.2 Pelvic and perineal pain; N30.01 Acute cystitis with hematuria
CPT/HCPCS: 74177; 80053; 81003; 85025; 87086; 99284; J0696; J7030

== ENCOUNTER 2022-09-12 08:13 | Emergency (ER) | payer MEDICARE, OTHER ==
[~2022-09-12] VITALS: Ht 162.6 cm; Wt 83.9 kg
[~2022-09-12 08:13] MED LIST: AZITHROMYCIN250 MG PO; CYCLOBENZAPRINE5 MG PO; NAPROSYN500 MG PO; PREDNISONE20 MG PO; VENTOLIN HFA18 GM INH
[2022-09-12 08:23] VITALS: O2SAT 97
[2022-09-12] MEDS ORDERED: DEXAMETHASONE SOD PHOS INJ 4 MG/ML SDV IM ONE (08:30)
[2022-09-12] MEDS ORDERED: DEXAMETHASONE SOD PHOS INJ 4 MG/ML SDV ONE (08:30)
[2022-09-12] MEDS ORDERED: AZITHROMYCIN250 MG PO (08:32)
[2022-09-12] MEDS ORDERED: PREDNISONE20 MG PO (08:32)
[2022-09-12] MEDS ORDERED: PROVENTIL HFA6.7 GM INH (08:32)
[2022-09-12] MEDS ORDERED: TAMIFLU75 MG PO (08:51)
== END 2022-09-12 09:07 | disposition home or self-care (01) ==
LOC: FSED 08:18
DX: J10.1 Influenza due to other identified influenza virus with other respiratory manifestations (principal); R05.9 Cough, unspecified; E03.9 Hypothyroidism, unspecified; F32.A Depression, unspecified; K21.9 Gastro-esophageal reflux disease without esophagitis; E78.5 Hyperlipidemia, unspecified; Z90.49 Acquired absence of other specified parts of digestive tract; Z87.440 Personal history of urinary (tract) infections; Z88.0 Allergy status to penicillin; Z59.6 Low income
CPT/HCPCS: 71046; 83518; 87400; 99283; J1100

== ENCOUNTER 2023-09-12 08:52 | Emergency (ER) | payer MEDICARE, OTHER ==
[~2023-09-12] VITALS: Ht 162.6 cm; Wt 83.9 kg
[~2023-09-12 08:52] MED LIST changes: +PROVENTIL HFA6.7 GM INH; +TAMIFLU75 MG PO
[2023-09-12 09:05] VITALS: PULSE 63; RESP 18; TEMP 98.1; O2SAT 97
[2023-09-12] MEDS ORDERED: IBUPROFEN200 MG PO (09:19)
== END 2023-09-12 09:50 | disposition home or self-care (01) ==
LOC: FSED 09:02
DX: S93.602A Unspecified sprain of left foot, initial encounter (principal); W22.03XA Walked into furniture, initial encounter; Y92.013 Bedroom of single-family (private) house as the place of occurrence of the external cause; E03.9 Hypothyroidism, unspecified; E78.5 Hyperlipidemia, unspecified; F32.A Depression, unspecified; Z87.440 Personal history of urinary (tract) infections
CPT/HCPCS: 99284

== ENCOUNTER 2023-09-14 15:09 | Emergency (ER) | payer MEDICARE, OTHER ==
[~2023-09-14] VITALS: Ht 162.6 cm; Wt 83.9 kg
[~2023-09-14 15:09] MED LIST changes: +IBUPROFEN200 MG PO
[2023-09-14 15:36] VITALS: PULSE 68; RESP 17; TEMP 98.4; O2SAT 97
[2023-09-14] MEDS ORDERED: LIDOCAINE HCL 1% LOCAL INJ 20 ML VIAL INJ ONE (17:15)
[2023-09-14] MEDS ORDERED: LIDOCAINE 1% 10 ML MULTIDOSE VIAL IJ ONE (17:19)
[2023-09-14 18:08] VITALS: BP 137/78
== END 2023-09-14 18:13 | disposition home or self-care (01) ==
LOC: ER 15:31
DX: S01.111A Laceration without foreign body of right eyelid and periocular area, initial encounter (principal); W26.8XXA Contact with other sharp object(s), not elsewhere classified, initial encounter; Y92.019 Unspecified place in single-family (private) house as the place of occurrence of the external cause; E03.9 Hypothyroidism, unspecified; E78.5 Hyperlipidemia, unspecified; K21.9 Gastro-esophageal reflux disease without esophagitis; F32.A Depression, unspecified
CPT/HCPCS: 70450; 70486; 99283